=== PATIENT | male | born 1955 | race African-American/Black ===

== ENCOUNTER 2016-09-11 19:44 | Inpatient (IN) | payer SELFPAY ==
[~2016-09-11] VITALS: Ht 190.5 cm; Wt 108.0 kg
[2016-09-11] MEDS ORDERED: MECLIZINE CHEWABLE 25 MG TAB ONE (20:14)
[2016-09-11] MEDS ORDERED: MECLIZINE CHEWABLE 25 MG TAB PO ONE (20:30)
[2016-09-11] MEDS ORDERED: SODIUM CHLORIDE 0.9% 1,000ML IVBOLUS ONE (20:30)
[2016-09-11] MEDS ORDERED: ONDANSETRON 2MG/ML, 2ML IVPush ONE (20:30)
[2016-09-11] MEDS ORDERED: SODIUM CHLORIDE FLUSH 10ML SYR IVF ONE (20:30)
[2016-09-11] MEDS ORDERED: ONDANSETRON 2MG/ML, 2ML ONE (20:41)
[2016-09-11 20:48] LABS: ASPARTATE AMINO TRANSFERASE 19 U/L (15-37); BLOOD UREA NITROGEN 20 mg/dL (7-18)
[2016-09-11 20:56] LABS: IS PT STATUS REG ER OR PRE ER? YES
[2016-09-11 23:01] VITALS: BP 155/96
[2016-09-12] MEDS ORDERED: POLYETHYLENE GLYCOL 17 GM PACKET PO PRN (01:00)
[2016-09-12] MEDS ORDERED: ACETAMINOPHEN 325 MG TABLET PO PRN (01:00)
[2016-09-12] MEDS ORDERED: ONDANSETRON 2MG/ML, 2ML IVPush PRN (01:00)
[2016-09-12] MEDS ORDERED: BISACODYL 10 MG SUPP PR PRN (01:00)
[2016-09-12] MEDS: SODIUM CHLORIDE 0.9% 1,000 ML IV SCH ×2 (01:27→10:31)
[2016-09-12 01:32] VITALS: BP 140/90
[2016-09-12] MEDS: HEPARIN 5,000 UNITS/ML, 1ML SQ SCH ×2 (01:57→10:00)
[2016-09-12] MEDS: INSULIN ASPART 100 UNITS/ML, PEN SQ-INSULIN SCH ×3 (01:57→12:21)
[2016-09-12 06:11] LABS: ASPARTATE AMINO TRANSFERASE 14 U/L (15-37); BLOOD UREA NITROGEN 18 mg/dL (7-18)
[2016-09-12 06:58] VITALS: BP 129/74
[2016-09-12] MEDS ORDERED: metFORMIN 500 MG TABLET PO SCH (08:00)
[2016-09-12] MEDS ORDERED: BLOO1EAC91 (08:48)
[2016-09-12] MEDS ORDERED: METF500T PO (08:49)
[2016-09-12] MEDS ORDERED: ENAL2.5T PO (08:49)
[2016-09-12] MEDS ORDERED: ENALAPRIL 2.5MG TABLET PO SCH (09:00)
[2016-09-12] MEDS ORDERED: SENNA/DOCUSATE TABLET PO SCH (09:00)
[2016-09-12 14:26] VITALS: BP 148/83
[2016-09-12] MEDS ORDERED: PNEUMOCOCCAL 23 VACCINE IM-VACC ONE (15:00)
== END 2016-09-12 15:48 | disposition home or self-care (01) | DRG 638 ==
LOC: ED 21:23 → EDIP 21:24 → ED 21:43 → 3NE 22:12 → DCLOUNGE 09-12 14:56
PROVIDERS: ADMIT Internal Medicine; ATTEND Internal Medicine
DX: E11.65 Type 2 diabetes mellitus with hyperglycemia (principal); E87.0 Hyperosmolality and hypernatremia; D17.9 Benign lipomatous neoplasm, unspecified; Z90.49 Acquired absence of other specified parts of digestive tract; Z72.0 Tobacco use; R51 Headache; R63.1 Polydipsia; R35.8 Other polyuria
CPT/HCPCS: 36415; 70450; 71010; 80053; 80061; 81003; 82962; 83036; 83880; 84484; 85025; 90732; 93005; 96361; 96374; J1644; J1815; J2405; J7030